=== PATIENT | male | born 1965 | race Caucasian/White ===

== ENCOUNTER 2020-05-01 12:57 | Inpatient (IN) | payer MEDICARE, OTHER ==
[~2020-05-01] VITALS: Ht 180.3 cm; Wt 108.4 kg
[2020-05-01 13:39] LABS: HEMOGLOBIN 14.1 gm/dl (14.0-17.5); RED BLOOD COUNT 4.45 M/UL (4.20-5.50); WHITE BLOOD COUNT 8.6 K/UL (4.5-11.0)
[2020-05-01 13:58] LABS: BUN/CREATININE RATIO 16 (0-10)
[2020-05-01] MEDS ORDERED: IBUPROFEN400 MG PO (16:02)
[2020-05-01] MEDS ORDERED: CLONIDINE HCL0.3 MG PO (16:03)
[2020-05-01] MEDS ORDERED: AMLODIPINE BESY10 MG PO (16:03)
[2020-05-01] MEDS ORDERED: ELIQUIS5 MG PO (16:04)
[2020-05-02 05:08] LABS: HEMOGLOBIN 13.2 gm/dl (14.0-17.5); RED BLOOD COUNT 4.29 M/UL (4.20-5.50)
[2020-05-02 05:44] LABS: BUN/CREATININE RATIO 18 (0-10)
[2020-05-03 07:50] LABS: HEMOGLOBIN 13.4 gm/dl (14.0-17.5); RED BLOOD COUNT 4.45 M/UL (4.20-5.50); WHITE BLOOD COUNT 6.7 K/UL (4.5-11.0)
[2020-05-03 08:00] LABS: BUN/CREATININE RATIO 18 (0-10)
[2020-05-04 06:00] LABS: BUN/CREATININE RATIO 12 (0-10)
[2020-05-05 02:28] LABS: BUN/CREATININE RATIO 13 (0-10)
[2020-05-06 02:41] LABS: BUN/CREATININE RATIO 20 (0-10)
[2020-05-07 03:46] LABS: RED BLOOD COUNT 4.77 M/UL (4.20-5.50); WHITE BLOOD COUNT 7.4 K/UL (4.5-11.0)
[2020-05-07 04:07] LABS: BUN/CREATININE RATIO 21 (0-10)
--- NOTE | 2020-05-07 08:35 | NUR ---
1ST DOSE OF HEPARIN WAS NOT GIVEN R/T FELL ON THE FLOOR.
[2020-05-08 04:53] LABS: HEMOGLOBIN 14.8 gm/dl (14.0-17.5); RED BLOOD COUNT 4.74 M/UL (4.20-5.50); WHITE BLOOD COUNT 8.9 K/UL (4.5-11.0)
[2020-05-08 05:04] LABS: BUN/CREATININE RATIO 22 (0-10)
[2020-05-09 04:41] LABS: HEMOGLOBIN 14.6 gm/dl (14.0-17.5); RED BLOOD COUNT 4.66 M/UL (4.20-5.50)
[2020-05-09 04:59] LABS: BUN/CREATININE RATIO 19 (0-10)
[2020-05-10 02:07] LABS: HEMOGLOBIN 13.3 gm/dl (14.0-17.5); RED BLOOD COUNT 4.3 M/UL (4.20-5.50); WHITE BLOOD COUNT 7.4 K/UL (4.5-11.0)
[2020-05-10 02:24] LABS: BUN/CREATININE RATIO 20 (0-10)
[2020-05-11 01:34] LABS: HEMOGLOBIN 13.7 gm/dl (14.0-17.5); RED BLOOD COUNT 4.35 M/UL (4.20-5.50)
[2020-05-11 01:50] LABS: BUN/CREATININE RATIO 18 (0-10)
--- NOTE | 2020-05-11 11:08 | NUR ---
COVID 19 SWAB OBTAINED, AND TOOK TO LAB
--- NOTE | 2020-05-11 11:52 | NUR ---
pt being trasfered to [facility], called report to Nelly RODRIGUEZ on [facility], awaiting to d/c pt per ambulance
== END 2020-05-11 14:37 | disposition short-term general hospital (02) | DRG 300 ==
LOC: ER1 12:57 → MED SURG 4 14:52 → CDU 14:52 → MED SURG 4 19:56
PROVIDERS: Internal Medicine; Physician Assistant; Surgery; ADMIT Internal Medicine
PROC: B24BZZZ Ultrasonography of Heart with Aorta (ICD-10-PCS; principal; 2020-05-04)
PROC: B41DZZZ Fluoroscopy of Aorta and Bilateral Lower Extremity Arteries (ICD-10-PCS; 2020-05-08)
DX: I73.9 Peripheral vascular disease, unspecified (principal); I75.029 Atheroembolism of unspecified lower extremity; C64.1 Malignant neoplasm of right kidney, except renal pelvis; T82.856A Stenosis of peripheral vascular stent, initial encounter; I65.23 Occlusion and stenosis of bilateral carotid arteries; I10 Essential (primary) hypertension; F17.290 Nicotine dependence, other tobacco product, uncomplicated; F19.11 Other psychoactive substance abuse, in remission; E66.9 Obesity, unspecified; K21.9 Gastro-esophageal reflux disease without esophagitis; Z20.822 Contact with and (suspected) exposure to COVID-19; E78.5 Hyperlipidemia, unspecified; Z89.422 Acquired absence of other left toe(s); Z79.01 Long term (current) use of anticoagulants; Z79.899 Other long term (current) drug therapy; Z76.5 Malingerer [conscious simulation]; Z95.820 Peripheral vascular angioplasty status with implants and grafts; Z68.32 Body mass index [BMI] 32.0-32.9, adult; Z80.9 Family history of malignant neoplasm, unspecified; Z82.49 Family history of ischemic heart disease and other diseases of the circulatory system
CPT/HCPCS: ECHO; 36415; 75625; 75635; 80048; 80053; 80202; 80307; 85025; 85027; 85610; 85730; 86850; 86900; 86901; 90471; 93005; 93306; 93880; 96365; 96366; 96367; 96375; 99284; C1769; C1887; J1170; J1644; J2001; J2250; J2270; J2405; J2550; J2704; J2710; J2720; J3010; J3370; J7030; J7040; J7050; J7070; J7120; Q9962; Q9967; U0002